=== PATIENT | female | born 1955 | race Caucasian/White ===

== ENCOUNTER → 2017-09-05 09:39 | Outpatient (CLI) | payer OTHER, SELFPAY ==
[2017-09-05 10:29] LABS: Absolute Lymphocyte Count 1.34 X10^3/ul (0.83-4.51); Absolute Neutrophil Count 4.7 X10^3/uL (2.0-7.7); Basophil# 0.05 X10^3/uL; Basophil% 0.7 % (0-1); Eosinophil# 0.34 X10^3/uL; Eosinophils% 4.9 % (0-5); Hematocrit 38.4 % (37-47); Hemoglobin 12.7 g/dl (12.0-15.0); Lymphocyte # 1.34 X10^3/ul (4.0); Lymphocyte % 19.4 % (19-41); Mean Corp Hgb Conc 33.1 g/gl (32-36); Mean Corpuscular Hgb 29.9 pg (27.0-32.0); Mean Corpuscular Volume 90.4 fL (81-99); Monocyte# 0.48 X10^3/uL; Neutrophil # 4.67 X10^3/uL (2.7-7.7); Neutrophil % 67.7 % (47-70); Platelet Count 247 K/mm3 (150-450); RBC Distribution Width CV 13.3 % (11.6-14.6); RBC Distribution Width SD 43.2 fl (35.1-43.9); Red Blood Count 4.25 M/mm3 (4.2-5.4); White Blood Count 6.9 K/mm3 (4.4-11.0)
[2017-09-05 10:43] LABS: Hemoglobin A1c 6.1 % (4.2-6.3)
[2017-09-05 10:49] LABS: POSITIVE COUNT NO; POSITIVE DIFFERENTIAL NO; POSITIVE MORPHOLOGY NO
[2017-09-05 10:58] LABS: ALB/GLOB Ratio 1.1 RATIO (0.9-2.4); AST(SGOT) 16 U/L (15-37); Alanine Aminotransfer ALT/SGPT 20 U/L (13-56); Albumin, Serum 3.6 g/dL (3.2-5.0); Alkaline Phosphatase 85 U/L (45-117); Anion Gap 6 (5-15); BUN 22 mg/dL (7-18); BUN/Creat Ratio 26.7 RATIO (10-20); Calcium,Total 8.8 mg/dL (8.5-10.1); Chloride 107 mmol/L (98-107); Cholesterol 185 mg/dL (200); Creatinine, Serum 0.82 mg/dL (0.55-1.02); EST Glomerular Filtration Rate 74 mL/min (>60); Est Glom Filt Rate - Afr Amer 90 mL/min (>60); Globulin 3.3 g/dL (2.2-4.2); Glucose 110 mg/dL (74-106); High Density Lipoprotein 53 mg/dL; Protein, Total 6.9 g/dL (6.4-8.2); Sodium Level 141 mmol/L (136-145); T4 Free Direct 1.13 ng/dL (0.76-1.46); Thyroid Stim Hormone (TSH) 2.95 uIU/mL (0.358-3.74); Triglycerides 118 mg/dL; Very Low Density Lipoprotein 24 mg/dL (5-40)
== END ==
LOC: LAB 09:44
PROVIDERS: Family Provider Family Medicine; PCP Family Medicine; Visit Provider Family Medicine
DX: E03.9 Hypothyroidism, unspecified (principal); I10 Essential (primary) hypertension; R73.01 Impaired fasting glucose
CPT/HCPCS: 80053; 80061; 83036; 84439; 84443; 85025

== ENCOUNTER 2017-11-12 08:58 | Emergency (ER) | payer OTHER, SELFPAY ==
[2017-11-12 08:59] VITALS: BP 177/100; PULSE 74; RESP 20; TEMP 36.1; O2SAT 98; BMI 48.0
--- NOTE | 2017-11-12 09:12 | EKG12_ITS ---
Test Reason : COUGH Blood Pressure : / mmHG Vent. Rate : 066 BPM Atrial Rate : 066 BPM P-R Int : 144 ms QRS Dur : 084 ms QT Int : 414 ms P-R-T Axes : 052 020 -10 degrees QTc Int : 434 ms Normal sinus rhythm Normal ECG Confirmed by MIC SHIELDS MD ([id number]), editor newspaper NICHOLAS BYERS ([id number]) on 11/13/2017 11:53:02 AM Referred By: BETZAIDA Confirmed By:MIC SHIELDS MD
--- NOTE | 2017-11-12 09:14 | ED.DCSUM_ITS ---
- ER Visit Summary Date of Service: 11/12/17 Chief Complaint: Cough History of Present Illness: The patient is a 61 F who presents with a cough and fatigue over the past week. Her cough is been nonproductive. Over the past couple of days she has felt more fatigued and has been laying on the couch. She does have a history of chronic bronchitis and has been using Mucinex at home without any relief. She has not had a fever. Today she came in because her face felt numb and it traveled to her arms. She had no chest pain. Physical Examination: Vital signs reviewed. HEENT exam unremarkable. Heart is regular rate and rhythm without murmurs. Lungs are clear to auscultation. Abdomen is soft and nontender. Extremities reveal no edema. Skin exam normal. Neurologic exam normal except for some paresthesias of the face when you palpate it with light touch. Test Results: EKG is normal sinus rhythm with a rate of 66. No ST changes. Chest x-ray unremarkable. Hemoglobin 11.8, BUN 22, troponin normal Emergency Department Course and Treatment: Patient was given one aerosol treatment. Upon reevaluation she is unchanged. However, her labs, imaging and EKG are all unremarkable. This is likely acute bronchitis. Patient will be treated with steroids as well as antibiotics. She will follow up with her PCP Treatment Plan: [] Disposition: Discharge Impression: Bronchitis This note was generated with [employer] dictation software. It may contain incorrect words, spelling, and punctuation that were not noted in review of the chart prior to signing ED Disposition - Plan for ED Patient: Chief Complaint: Cough Referrals: Edvin Soto MD [Primary Care Provider] -
--- NOTE | 2017-11-12 09:15 | RAD_ITS ---
STUDY: X-RAY CHEST REASON FOR EXAM: Female, 61 years old. Chest pain. TECHNIQUE: Single AP portable view of the chest. COMPARISON: Comparison is made with prior study dated November 27, 2014. FINDINGS: The lungs are clear and expanded. There is no demonstrated pleural abnormality. Normal size heart. Normal mediastinum and alexandra. Normal visualized pulmonary arteries. There is atherosclerotic tortuosity of the aortic arch and descending thoracic aorta. There are degenerative changes of the visualized thoracic spine. Normal visualized ribs, clavicles, and shoulders. There is no demonstrated abnormality of the visualized soft tissue structures of the upper abdomen. RAD/Chest 1 View (Portable) IMPRESSION: Normal x-ray examination of the chest. Electronically Signed: Lino Reece MD at 10:04 EDT Tel [phone], Service support ,
[2017-11-12] MEDS: Albuterol 2.5 MG/3 ML VIAL.NEB. INHALATION (09:21)
[2017-11-12 09:28] VITALS: PULSE 66; RESP 20
[2017-11-12 09:35] LABS: Absolute Lymphocyte Count 1.51 X10^3/ul (0.83-4.51); Absolute Neutrophil Count 5.4 X10^3/uL (2.0-7.7); Basophil# 0.04 X10^3/uL; Basophil% 0.5 % (0-1); Eosinophil# 0.44 X10^3/uL; Eosinophils% 5.5 % (0-5); Hematocrit 35.2 % (37-47); Hemoglobin 11.8 g/dl (12.0-15.0); Lymphocyte # 1.51 X10^3/ul (4.0); Lymphocyte % 18.7 % (19-41); Mean Corp Hgb Conc 33.5 g/gl (32-36); Mean Corpuscular Hgb 29.9 pg (27.0-32.0); Mean Corpuscular Volume 89.3 fL (81-99); Mean Platelet Vol. 10.1 fl (6.2-12.0); Monocyte# 0.58 X10^3/uL; Monocyte% 7.2 % (0-10); Neutrophil # 5.43 X10^3/uL (2.7-7.7); Neutrophil % 67.4 % (47-70); POSITIVE COUNT NO; POSITIVE DIFFERENTIAL NO; POSITIVE MORPHOLOGY NO; Platelet Count 246 K/mm3 (150-450); RBC Distribution Width CV 13.4 % (11.6-14.6); RBC Distribution Width SD 43.4 fl (35.1-43.9); Red Blood Count 3.94 M/mm3 (4.2-5.4); White Blood Count 8.1 K/mm3 (4.4-11.0)
[2017-11-12] MEDS: Aspirin 81 MG TAB.CHEW 324 MG PO (09:35)
[2017-11-12 09:56] LABS: Anion Gap 7 (5-15); BUN 22 mg/dL (7-18); BUN/Creat Ratio 22.6 RATIO (10-20); Calcium,Total 8.8 mg/dL (8.5-10.1); Chloride 104 mmol/L (98-107); Creatinine, Serum 0.97 mg/dL (0.55-1.02); EST Glomerular Filtration Rate 61 mL/min (>60); Est Glom Filt Rate - Afr Amer 74 mL/min (>60); Estimated Creatinine Clearance 42.64 ml/min; Glucose 102 mg/dL (74-106); Potassium 3.5 mmol/L (3.5-5.1); Sodium Level 139 mmol/L (136-145)
--- NOTE | 2017-11-12 10:13 | ED.DEP ---
ED Disposition - Plan for ED Patient: Disposition: Home or Assisted Living Chief Complaint: Cough Instructions: ED Upper Resp Infec Abx Tx Prescriptions: Azithromycin [Zithromax] 250 mg PO DAILY #6 tab Prednisone [Deltasone] 40 mg PO DAILY #10 tab Referrals: Edvin Soto MD [Primary Care Provider] -
[2017-11-12 10:16] VITALS: BP 145/76; PULSE 69; RESP 13; O2SAT 94
== END 2017-11-12 10:32 | disposition home or self-care (01) ==
PROVIDERS: Emergency Provider Emergency Medicine; Family Provider Family Medicine; PCP Family Medicine
DX: J40 Bronchitis, not specified as acute or chronic (principal); R20.2 Paresthesia of skin; K21.9 Gastro-esophageal reflux disease without esophagitis; I10 Essential (primary) hypertension; E03.9 Hypothyroidism, unspecified; Z79.899 Other long term (current) drug therapy
CPT/HCPCS: 71045; 80048; 84484; 85025; 93005; 94640; 99284

== ENCOUNTER 2018-06-11 11:23 | Emergency (ER) | payer OTHER, SELFPAY ==
[2018-06-11 11:24] VITALS: BP 151/74; PULSE 94; RESP 17; TEMP 36.9; O2SAT 94; BMI 46.8
--- NOTE | 2018-06-11 11:46 | CT_ITS ---
STUDY: CT ABDOMEN AND PELVIS WITH CONTRAST REASON FOR EXAM: Female, 62 years old. Right upper quadrant and right flank pain. Worse with BM. RADIATION DOSAGE (If Supplied By Facility): CTDIvol = ( 16.20 ) mGy, DLP = ( 1011.17 ) mGycm TECHNIQUE: Transaxial images were obtained from the dome of the diaphragm to the symphysis pubis without oral contrast. 100 ml of Isovue 300 contrast was administered. Sagittal and coronal images were reconstructed. Individualized dose optimization techniques were used for this CT. COMPARISON: None. FINDINGS: The visualized lung bases are unremarkable. The visualized portions of the heart are within normal limits. Normal liver. Normal gallbladder and extrahepatic biliary system. Normal spleen. Normal pancreas. Normal bilateral adrenal glands. Normal right kidney. Normal left kidney. Normal visualized stomach. Normal small intestine. Normal colon. The appendix is visualized and appears normal. Normal abdominal aorta. Normal inferior vena cava. Normal retroperitoneum. Normal urinary bladder. Small midline umbilical hernia containing only adipose tissue. Mild degenerative anterolisthesis of L4 on L5. Diffuse disc space height narrowing throughout the lumbar spine with degenerative vacuum phenomenon. No acute osseous abnormality. CT/Abdomen/Pelvis W IV Cont ONLY IMPRESSION: 1. No CT evidence of stones in the kidneys, ureters and bladder. 2. Normal CT of the appendix. 3. Small midline umbilical hernia containing only adipose tissue. 4. No CT evidence of mass or acute abnormality in the abdomen and pelvis. 5. Mild degenerative anterolisthesis of L4 on L5. 6. Diffuse degenerative disc space height narrowing with degenerative vacuum phenomenon throughout the lumbar spine. Electronically Signed: Ralph Allen MD at 15:01 EST , Service support ,
[2018-06-11 12:03] LABS: Mucous, Urine 0 SEEN /hpf (<or=2+); Red Blood Cells-Urine 0 SEEN /hpf (0-5)
[2018-06-11 12:10] LABS: Color, Urine Yellow (Yellow); Glucose, Dipstick Normal (Normal); Ketone-Dipstick Negative (Negative); Leukocyte Esterase-Dipstick 25 /ul (Negative); Nitrite-Dipstick Positive (Negative); Occult Blood-Urine Negative /ul (Negative); Protein-Dipstick Negative (Negative); Urine Bilirubin Dipstick Negative (Negative); Urine Clarity Sl. Cloudy (Clear); Urine Urobilinogen Normal (Normal)
[2018-06-11] MEDS: 0.9% Normal Saline 1,000 ML 1000 ML IV (12:10)
[2018-06-11 12:19] LABS: Absolute Lymphocyte Count 1.74 X10^3/ul (0.83-4.51); Absolute Neutrophil Count 5.5 X10^3/uL (2.0-7.7); Basophil# 0.02 X10^3/uL; Basophil% 0.2 % (0-1); Eosinophils% 3.7 % (0-5); Hematocrit 37.7 % (37-47); Hemoglobin 12.2 g/dl (12.0-15.0); Lymphocyte # 1.74 X10^3/ul (4.0); Lymphocyte % 21.7 % (19-41); Mean Corp Hgb Conc 32.4 g/gl (32-36); Mean Corpuscular Hgb 29.1 pg (27.0-32.0); Mean Platelet Vol. 10.6 fl (6.2-12.0); Monocyte# 0.44 X10^3/uL; Monocyte% 5.5 % (0-10); Neutrophil # 5.52 X10^3/uL (2.7-7.7); Neutrophil % 68.8 % (47-70); Platelet Count 292 K/mm3 (150-450); RBC Distribution Width CV 13.3 % (11.6-14.6); RBC Distribution Width SD 43.4 fl (35.1-43.9); Red Blood Count 4.19 M/mm3 (4.2-5.4)
[2018-06-11 12:20] LABS: POSITIVE COUNT NO; POSITIVE DIFFERENTIAL NO; POSITIVE MORPHOLOGY NO
[2018-06-11 12:24] LABS: Bacteria 2+ /hpf (None Seen); Squamous Epithelial Cells - UA 0-5 SEEN /hpf (5-10); White Blood Cells 0-5 SEEN /hpf (0-5)
[2018-06-11 12:56] LABS: AST(SGOT) 19 U/L (15-37); Alanine Aminotransfer ALT/SGPT 28 U/L (13-56); Albumin, Serum 3.9 g/dL (3.2-5.0); Alkaline Phosphatase 92 U/L (45-117); Anion Gap 8 (5-15); BUN 36 mg/dL (7-18); BUN/Creat Ratio 32.1 RATIO (10-20); Bilirubin, Direct 0.08 mg/dL (0.00-0.30); Chloride 105 mmol/L (98-107); Creatinine, Serum 1.12 mg/dL (0.55-1.02); EST Glomerular Filtration Rate 52 mL/min (>60); Est Glom Filt Rate - Afr Amer 63 mL/min (>60); Estimated Creatinine Clearance 36.45 ml/min; Globulin 3.5 g/dL (2.2-4.2); Glucose 107 mg/dL (74-106); Lipase 172 U/L (73-393); Protein, Total 7.4 g/dL (6.4-8.2); Sodium Level 140 mmol/L (136-145)
[2018-06-11 13:54] VITALS: BP 131/65; PULSE 71; RESP 14; O2SAT 97
--- NOTE | 2018-06-11 15:35 | ED.VISSUMM ---
- ER Visit Summary Date of Service: 06/11/18 Chief Complaint: Right flank pain History of Present Illness: The patient is a [address] Edvin Soto. She reports that she has right flank pain that began 6 days ago. Sick continuous aching, sharp pain. Is 10 out of 10 at worst and 2 out of 10 currently. It is worsened by having a bowel movement. Is relieved by nothing. She denies any nausea, vomiting, or diarrhea. States her last problem was today. Was a loose stool. She denies any blood in her stools or black tarry stools. No dysuria or frequency. Patient reports that she was diagnosed with a urinary tract infection 2 weeks ago and took Macrobid for 1 week. She has never had anything like this before. She denies any fever, chills, chest pain, or shortness of breath. Physical Examination: Vitals: Stable. Afebrile. General: Well-nourished and well-developed. Head: Normocephalic atraumatic. Neck: Supple, no lymphadenopathy. No JVD. Nontender. Cardiovascular: Regular rate and rhythm. No murmurs. Respiratory: No respiratory distress. Clear to auscultation bilaterally. Abdominal: Soft, nontender, nondistended, normal bowel sounds. No guarding, rebound, or peritoneal signs. Back: Mild right CVA tenderness. Extremities: Nontender, no edema. Skin: Normal color, no rash. Neurologic: Alert and oriented ?3. Cranial nerves II through XII are intact. Normal strength and sensation. Psych: Normal affect. Test Results: CBC is normal. Chem-7 is more for glucose 107, BUN 36, creatinine 1.12. LFTs are normal. Lipase is normal. UA is negative. Clinical Impression(s) from Imaging Studies Abdomen/Pelvis CT 06/11/18 11:46 IMPRESSION: 1. No CT evidence of stones in the kidneys, ureters and bladder. 2. Normal CT of the appendix. 3. Small midline umbilical hernia containing only adipose tissue. 4. No CT evidence of mass or acute abnormality in the abdomen and pelvis. 5. Mild degenerative anterolisthesis of L4 on L5. 6. Diffuse degenerative disc space height narrowing with degenerative vacuum phenomenon throughout the lumbar spine. Electronically Signed: Ralph Allen MD at 15:01 EST , Service support , Emergency Department Course and Treatment: Patient refused pain or nausea medications. She is resting comfortably. Treatment Plan: Patient will be discharged symptomatic care. Follow-up her primary care physician 1-2 days if not improving. Return to the emergency department for any worsening symptoms. Disposition: To home in improved and stable condition. Impression: 1. Flank pain, uncertain cause. This note was generated with [employer] dictation software. It may contain incorrect words, spelling, and punctuation that were not noted in review of the chart prior to signing ED Disposition - Plan for ED Patient: Disposition: Home or Assisted Living Chief Complaint: Flank Pain Instructions: ED Flank Pain Uncertain Cause Referrals: Edvin Soto MD [Primary Care Provider] - 1-2 Days if not improving
[2018-06-11 15:43] VITALS: BP 130/85; PULSE 78; RESP 14; O2SAT 98
== END 2018-06-11 15:45 | disposition home or self-care (01) ==
PROVIDERS: Emergency Provider Emergency Medicine; Family Provider Family Medicine; PCP Family Medicine
DX: R10.9 Unspecified abdominal pain (principal); R19.5 Other fecal abnormalities; K42.9 Umbilical hernia without obstruction or gangrene; I10 Essential (primary) hypertension; E03.9 Hypothyroidism, unspecified; Z87.440 Personal history of urinary (tract) infections; Z79.899 Other long term (current) drug therapy
CPT/HCPCS: 74177; 80048; 80076; 81001; 83690; 85025; 96360; 99284; J7030; Q9967; A4216

== ENCOUNTER → 2018-08-04 13:35 | Outpatient (CLI) | payer OTHER, SELFPAY ==
[2018-08-04 15:47] LABS: Absolute Lymphocyte Count 1.92 X10^3/ul (0.83-4.51); Basophil# 0.05 X10^3/uL; Basophil% 0.6 % (0-1); Eosinophil# 0.13 X10^3/uL; Eosinophils% 1.5 % (0-5); Hematocrit 38.7 % (37-47); Hemoglobin 12.8 g/dl (12.0-15.0); Lymphocyte # 1.92 X10^3/ul (4.0); Lymphocyte % 22.4 % (19-41); Mean Corp Hgb Conc 33.1 g/gl (32-36); Mean Corpuscular Hgb 29.6 pg (27.0-32.0); Mean Corpuscular Volume 89.6 fL (81-99); Mean Platelet Vol. 11.1 fl (6.2-12.0); Monocyte% 5.8 % (0-10); Neutrophil # 5.95 X10^3/uL (2.7-7.7); Neutrophil % 69.2 % (47-70); Platelet Count 316 K/mm3 (150-450); RBC Distribution Width CV 13.6 % (11.6-14.6); RBC Distribution Width SD 44.3 fl (35.1-43.9); Red Blood Count 4.32 M/mm3 (4.2-5.4); White Blood Count 8.6 K/mm3 (4.4-11.0)
[2018-08-04 15:56] LABS: POSITIVE COUNT NO; POSITIVE DIFFERENTIAL NO; POSITIVE MORPHOLOGY NO
[2018-08-04 16:00] LABS: ALB/GLOB Ratio 1.3 RATIO (0.9-2.4); AST(SGOT) 21 U/L (15-37); Alanine Aminotransfer ALT/SGPT 29 U/L (13-56); Albumin, Serum 4.3 g/dL (3.2-5.0); Alkaline Phosphatase 93 U/L (45-117); Anion Gap 10 (5-15); BUN 31 mg/dL (7-18); BUN/Creat Ratio 26.7 RATIO (10-20); Calcium,Total 9.3 mg/dL (8.5-10.1); Chloride 101 mmol/L (98-107); Creatinine, Serum 1.16 mg/dL (0.55-1.02); EST Glomerular Filtration Rate 50 mL/min (>60); Est Glom Filt Rate - Afr Amer 60 mL/min (>60); Globulin 3.3 g/dL (2.2-4.2); Glucose 90 mg/dL (74-106); Potassium 4.1 mmol/L (3.5-5.1); Protein, Total 7.6 g/dL (6.4-8.2); Sodium Level 137 mmol/L (136-145)
== END ==
PROVIDERS: Family Provider Family Medicine; PCP Family Medicine; Visit Provider Family Medicine
DX: Z01.818 Encounter for other preprocedural examination (principal); M21.612 Bunion of left foot; I10 Essential (primary) hypertension; E03.9 Hypothyroidism, unspecified
CPT/HCPCS: 36415; 80053; 85025

== ENCOUNTER 2018-08-13 05:49 | Day surgery (SDC) | payer OTHER, SELFPAY ==
[2018-08-13] VITALS (7 sets, daily range): BP systolic 128–147; BP diastolic 72–81; PULSE 68–103; RESP 16; TEMP 36.3–37; O2SAT 92–99; BMI 48.7
[2018-08-13] MEDS: Cefazolin 2 GM in 0.9% Normal Saline 100 ML IV (07:28)
--- NOTE | 2018-08-13 07:30 | RAD_ITS ---
STUDY: X-RAY - LEFT FOOT CLINICAL: Female, 62 years old. Bunion surgery and arthrodesis TECHNIQUE: 7 intraoperative view(s) of the foot. COMPARISON: None. FINDINGS: 7 limited intraoperative views of the left foot were performed as the patient has undergone hallux valgus reduction surgery with fusion of the first tarsal metatarsal joint and stapling fusion of the second and third tarsometatarsal joints per RAD/Foot min 3 Views IMPRESSION: 7 Limited intraoperative views as the patient has undergone foot surgery. Follow-up recommended to assure healing Electronically Signed: Armand Newton MD at 12:14 EST , Service support ,
[2018-08-13] MEDS: Bupivacaine Mpf 0.5% 30 ML VIAL (11:15)
--- NOTE | 2018-08-13 11:36 | RAD_ITS ---
STUDY: X-RAY - LEFT FOOT CLINICAL: Female, 62 years old. Postop from bunionectomy and correction surgery TECHNIQUE: 3 view(s) of the foot. COMPARISON: None. FINDINGS: 3 views were performed of the patient is undergone bunion reduction surgery and arthrodesis. Surgical hardware traversing the first tarsometatarsal junction and surgical michi traversing the second and third tarsometatarsal junctions free of complication. Alignment at the joint spaces is anatomic there is no plain film evidence of postoperative complication. Normal postoperative soft tissue swelling and subcutaneous emphysema noted Calcaneal spurs. RAD/Foot min 3 Views IMPRESSION: Postoperative changes in the left foot. Alignment is anatomic, no plain film evidence of postoperative complication Calcaneal spurs Electronically Signed: Armand Newton MD at 12:16 EST , Service support ,
--- NOTE | 2018-08-13 11:40 | DCINST_ITS ---
Discharge Diet: No Restrictions Discharge Activity: May not drive while taking narcotic pain medications., Use Walker, Use Crutches Ice area for (Minutes): 15 - place behind knee Weight Bearing Status: No weight bearing Keep extremity elevated above heart level: Left Leg Call your doctor if your incision/area has: Continuous Slow Oozing, Sudden Increased Bleeding, Increased Pain/ Swelling, Increased Redness, Foul Smelling Discharge, Swelling at the incision site Call your doctor if you observe: Fever of 101 or Higher, Coldness, Increased Pain, Numbness or Tingling, Calf discomfort, Uncontrolled pain Cleanse incision/area with: Keep Dressing Clean & Dry Allergies/Adverse Reactions: Allergies codeine Allergy (Verified 08/06/18 15:33) Hives Medications to take at Discharge Levothyroxine [Synthroid] 100 mcg PO DAILY 11/27/14 Lisinopril [Zestril] 10 mg PO DAILY 11/27/14 Paroxetine HCl [Paxil] 30 mg PO DAILY 11/27/14 Pregabalin [Lyrica] 75 mg PO BID PRN 11/12/17 Omeprazole [Prilosec] 20 mg PO DAILY 06/11/18 Primary Care Physician: Edvin Soto MD [Primary Care Provider] - Test Results: Test results from this visit will be discussed in further detail at your follow- up appointment, if applicable. Please Follow Up With: Colleen Pelayo DPM When: 1 week [facility]; call [phone] if questions Proposed Discharge Date: 08/13/18
--- NOTE | 2018-08-13 11:41 | OP.PN_ITS ---
Problem List (1) Hallux valgus (acquired), left foot Status: Chronic (2) Left foot pain Status: Chronic (3) Arthritis of left foot Status: Chronic Immediate Post-Op Note Date of Procedure: 08/13/18 - Mobile Battery Technician: David Peters PGY1, Alvin Radford PGY2. Surgeon: Colleen Pelayo DPM Primary Surgeon/Physician: Colleen Pelayo DPM waiter/waitress second class: none Pre-Operative Diagnosis: left hallux valgus. left arthritis of second and third metatarsal cuneiform Post-Operative Diagnosis: left hallux valgus. left arthritis of second and third metatarsal cuneiform Surgery/Procedure Performed:: left bunionectomy including arthrodesis of first metatarsal cuneiform with bone graft and internal fixation. left arthrodesis of second and third metatarsal cuneiform with internal fixation and bone graft Description of Surgical Findings:: Hemostasis controlled Materials: 2-0 and 3-0 Vicryl, 4-0 nylon, one plantar Arthrex Lapidus plate (standard), three nitinol Arthrex michi, one 3.5 mm low profile cortical titanium screw, three 3.5 mm low profile locking titanium screws, one 4 mm low profile titanium cancellus screw No specimen sent Complications none See detailed operation report for findings The patient tolerated the procedure and anesthesia well. She was transported to the PACU vital signs stable vascular status intact to left lower extremity. She will be discharged home upon continued stability. All of her postoperative orders were entered electronically. Estimated Blood Loss: <200 mL Specimen's removed: none Type of Anesthesia:: General, Local - Preoperative: 20 cc of one-to-one mixture of 1% lidocaine plain and 0.5% Marcaine plain administered in left ankle block fashion Postoperative: 20 cc of one-to-one mixture of 1% lidocaine plain and 0.5% Marcaine plain administered in left ankle block fashion and surgical site infiltration - Admit VTE Documentation VTE Present on Admission: No VTE Mechan Device Prophylaxis: SCD's VTE Pharm Prophylaxis ordered?: No Reason prophylaxis not ordered:: Treatment Not Indicated
--- NOTE | 2018-08-13 12:40 | PCM.OPRPT ---
Problem List (1) Hallux valgus (acquired), left foot Status: Chronic (2) Left foot pain Status: Chronic (3) Arthritis of left foot Status: Chronic Report of Operation Date of Procedure: 08/13/18 - [employer] Installer: David Peters PGY1, Alvin Radford PGY2. Surgeon: Colleen Pelayo DPM Pre-Operative Diagnosis: left hallux valgus. left arthritis of second and third metatarsal cuneiform Post-Operative Diagnosis: left hallux valgus. left arthritis of second and third metatarsal cuneiform Surgery/Procedure Performed:: left bunionectomy including arthrodesis of first metatarsal cuneiform with bone graft and internal fixation. left arthrodesis of second and third metatarsal cuneiform with internal fixation and bone graft Description of Surgical Findings:: Hemostasis: Well-padded pneumatic left thigh tourniquet, 350 mmHg, 120 minutes with break and then an additional 10 minutes Materials: 2-0 and 3-0 Vicryl, 4-0 nylon, one plantar Arthrex Lapidus plate (standard), three nitinol Arthrex michi, one 3.5 mm low profile cortical titanium screw, three 3.5 mm low profile locking titanium screws, one 4 mm low profile titanium cancellus screw Complications none clinical project manager: none Type of Anesthesia:: General, Local - Preoperative: 20 cc of one-to-one mixture of 1% lidocaine plain and 0.5% Marcaine plain administered in left ankle block fashion Postoperative: 20 cc of one-to-one mixture of 1% lidocaine plain and 0.5% Marcaine plain administered in left ankle block fashion and surgical site infiltration Specimen's removed: none Estimated Blood Loss (mL): <200 mL Description of Procedure: Indications: This 62-year-old pleasant female with significant past medical history of hypertension continues to have ongoing left foot pain at her bunion site and arthritic midfoot. She is failed conservative care including offloading, improve shoe gear, orthotics, rest, anti-inflammatory medication, and pain medicine. Her pain is affecting her ability to walk and perform daily activities. Radiographically she does demonstrate a severe increased intermetatarsal angle, appearance of a laterally deviated sesamoid apparatus, and diastases of the proximal first and second metatarsals. She does have lateral hallux deviation and a prominent hypertrophic first metatarsal medial eminence. There is also dorsal spurring and narrowing of the second and third metatarsal cuneiform articulations consistent with degenerative joint disease that correlates with her clinical pain. Clinically she has pain on palpation to the bunion site as well as the dorsal medial midfoot foot. Her foot is very flexible and she has hypermobility of the first ray as well. Her preoperative clearance, history and physical, and diagnostic data (labs and EKG) were reviewed in detail without gross abnormalities. She was cleared for surgery. The preoperative indications, planned procedure, possible benefits, risks, complications, and anticipated healing time and management were discussed in detail with the patient. No guarantees were made. She understands risks and complications may include but are not limited to the following: pain, swelling, scarring, hardware failure, delayed or nonhealing, infection, over under correction, recurrence, need for further surgery, numbness, loss of function, limb, life, allergic reaction, or blood clot. She understands and elects to proceed at this time. Informed surgical consent and the surgical limb were signed. I answered all her questions. Procedure in detail: The patient was transported to the operating room via cart and placed on the operating table in the supine position. Final verification of the patient, surgery, limb designation was performed via the timeout procedure. Local anesthetic was administered by the podiatry team. Preoperative antibiotics were administered by the anesthesia team. General anesthesia was initiated by the anesthesia team. A well-padded pneumatic left thigh tourniquet was applied. The left lower extremity was prepped and draped in the usual aseptic manner. Surgery began in the following manner: Attention was directed to the left lower extremity in which an Esmarch bandage was used for exsanguination and the tourniquet was inflated at this time. An 8 cm linear incision was made carefully through the skin to the medial aspect of the left foot spanning from the region of the medial cuneiform to the prominent first metatarsal head at the junction where the dorsal and plantar skin meet. Care was taken to identify, protect, and retract all neurovascular structures at this point and throughout the remainder of surgery. Blunt dissection was performed through the subcutaneous tissue and minimal electrocauterization was needed due to the varicosities. The tibialis anterior tendon was identified and the boundaries were marked. Care was taken to identify, protect, and retract neurovascular structures throughout the entire procedure. Next the first metatarsal cuneiform joint was identified and was incised with a 15 blade. A small joint retractor was applied and osteotomes, sagittal saw, and curette was used to resect the joint surfaces to healthy subchondral bone. Additional subchondral drilling and fish scaling was also performed to encouraged osseous union. Allosync demineralized bone matrix was applied to this site and the first ray was reduced manually and temporary fixation with k wires were applied. This was held in a reduced triplanar position to decrease the intermetatarsal angle and remove the valgus deformity. A distally applied tenaculum was also placed. The desired position was confirmed with intraoperative fluoroscopy with multiple imaging studies. Next, the plantar plate was temporarily fashioned to the plantar aspect of the first metatarsal cuneiform joint and held intact with BB tacks. Two distal screws were applied through the plate. Next the compression screw was applied utilizing proper AO fixation technique. Prior to final tightening, all temporary fixation was removed to allow adequate compression across the arthrodesis site. Lastly, two proximal screws were applied that were locking and according to proper AO fixation technique. Intraoperative fluoroscopy confirmed compression at the arthrodesis site, proper placement of screws and plate, and desired trajectory of all the screws. Solid fixation was achieved and the bunion correction site maintained a rectus position. Next, attention was directed to the dorsal foot in which a curvilinear incision was made to allow good exposure to the second and third metatarsal cuneiform articulation site where a prominent spur was noted. Prior to surgery her dorsalis pedis artery was palpated and marked and care was taken to perform a surgical dissection lateral to this area. The extensor tendons and extensor digitorum brevis muscle belly were reflected in which the joints were immediately identified and confirmed with intraoperative fluoroscopy. Careful dissection was performed to incise into the joints of interest and these were mobilized and distracted with a small joint distractor. The tourniquet was deflated at this time and pressure was applied to maintain hemostasis. Next, the second and third metatarsal cuneiform joint surfaces were prepared with sagittal saw, curette, and osteotome. These aformentioned joint surfaces were further prepared with subchondral K wire drilling and fish scaling technique. Allosync bone graft was applied to the site and these were temporary reduced and held in place with K wire fixation. Next, two Arthrex michi were applied to the second metatarsal cuneiform arthrodesis site, and one Arthrex staple was applied to the third metatarsal cuneiform arthrodesis site utilizing proper fixation technique to allow good apposition and compression. Proper placement was confirmed with intraoperative fluoroscopy and direct visualization. Saline irrigation was performed. No pulsatile bleeding was noted. Brisk capillary refill time was brisk to all digits of the left foot. Next, attention was directed to the first metatarsal phalangeal joint in which the first metatarsophalangeal joint capsular dissection was completed through the medial incision and the first metatarsal head was exposed to allow good visualization of the dorsal medial aspect. An Esmarch bandage was utilized to exsanguinate the limb and the tourniquet was reinflated at this time. It is noted over 25 minutes break was permitted prior to tourniquet reinflation. A sagittal saw was used to resect the hypertrophic dorsal and medial eminence taking care to preserve the sagittal sulcus. A small cheilectomy was also performed to allow improved motion. No osteochondral lesions were noted to the first metatarsal head. A capsulorrhaphy was performed to remove redundant medial capsule. Capsular deep tissue closure was achieved to all incisional sites with 2-0 Vicryl. The first metatarsophalangeal joint passive range of motion was smooth and gliding. The tourniquet was deflated at this time and brisk capillary refill time was noted to all digits of the left foot. No pulsatile bleeding was noted. Additional deep closure was performed at this time with 3-0 Vicryl to both incision sites. The skin was reapproximated with 4-0 nylon utilizing simple and horizontal mattress technique. Proper final hardware placement and trajectory, deformity correction, and eminence resection was confirmed with intraoperative fluoroscopy. A postoperative injection was administered at this time as noted. A postoperative dressing consisting of Adaptic, gauze, and webril was applied. A well-padded posterior mold splint was applied with the foot and ankle in a rectus position and this was further secured with MORIAH wraps. After procedure: The patient tolerated the procedure and anesthesia well. She was transported to the PACU with vital signs stable and vascular status intact to left lower extremity. She was advised to ice and elevate for pain and inflammation management. She was given a prescription for [place] for pain control in the home setting, and she was advised on safe and proper use. She was advised to maintain a strict nonweightbearing status to left lower extremity. She has an assistive device at home to help with this including a walker and knee roller. Crutches were also be provided today per her request to help her transport home. She was advised to keep her dressing and splint clean, dry, and intact until [facility] next week with Dr. Pelayo. Postoperative x-rays were again reviewed as noted above. She will be discharged home upon continued stability. All postoperative orders were entered electronically. Colleen Pelayo DPM, [facility]
[2018-08-13] MEDS: Ketorolac 30 MG/ML Syringe IV (13:19)
[2018-08-13] MEDS: HYDROcodone Bitartrate/Apap 5/325 Tablet PO (13:20)
== END 2018-08-13 13:55 | disposition home or self-care (01) ==
LOC: SDC 05:49 → AC 05:50
PROVIDERS: Family Provider Family Medicine; PCP Family Medicine; Referring Provider Podiatrist; Visit Provider Podiatrist
PROC: (CPT 28292; principal; 2018-08-13 07:15)
DX: M20.12 Hallux valgus (acquired), left foot (principal); M21.612 Bunion of left foot; M13.872 Other specified arthritis, left ankle and foot; J45.909 Unspecified asthma, uncomplicated; E03.9 Hypothyroidism, unspecified; F41.9 Anxiety disorder, unspecified; F32.9 Major depressive disorder, single episode, unspecified; I10 Essential (primary) hypertension; K21.9 Gastro-esophageal reflux disease without esophagitis; G62.9 Polyneuropathy, unspecified; E66.01 Morbid (severe) obesity due to excess calories; Z71.3 Dietary counseling and surveillance; Z68.42 Body mass index [BMI] 45.0-49.9, adult; Z79.899 Other long term (current) drug therapy
CPT/HCPCS: 28297; 28730; 64445; 73630; 76000; C1713; J7120; J2405

== ENCOUNTER → 2018-09-08 14:24 | Outpatient (CLI) | payer OTHER, SELFPAY ==
[2018-08-13 06:36] VITALS: BMI 48.7
[2018-09-08 16:23] LABS: T4 Free Direct 1.44 ng/dL (0.76-1.46)
== END ==
PROVIDERS: Family Provider Family Medicine; PCP Family Medicine; Visit Provider Family Medicine
DX: R73.01 Impaired fasting glucose (principal)
CPT/HCPCS: 36415; 84439; 84443

== ENCOUNTER 2018-10-11 12:30 | Outpatient (RCR) | payer OTHER, SELFPAY ==
[2018-08-13 06:36] VITALS: BMI 48.7
--- NOTE | 2018-10-04 19:38 | HP.PTEVAL ---
Patient's Visit Information SHANNAN HORTON is a 62 year old F referred to Physical Therapy by Colleen Pelayo DPM with a diagnosis of LEFT LAPIDIDUS BUNIONECTOMY,ARTHRODESIS OF 2ND AND 3RD METATRSELS/CUNEIFORM. Date of Evaluation: 10/04/18 Physical Therapist: Raman Diaz, PT, Cert MDT, OCS - Visit Plan Frequency: 2-3x /Week Duration: 8WEEKS Plan: S/P FOOT SURGEY 08/13/18. USES KNEELING WALKER INTIALLY. WHEN START PT PWB WITH CAM BOOT AND WALKER ,WILL PROGREES TO WBAT AND TRANSITION TO SHOE. INTERVENTION WITH ROM ANKLE FIRST MCP JOINT , GRADED STRENGTHENING ANKLE ,GAIT /BALANCE TRAINING - Subjective Findings: This 62 y/o female presenst to physical therapy with left lapidus buiionectomy,arthrodesis of 2nd and 3rd metatarsels cuneiform joints 08/13/18 at [facility] done by DR Fairchild.Patient had plates and srews/michi. Patient intiatlly was d/c with NWB using scooter and soft cast for 1 week ,then hard cast 2weeks . Patient place in in CAM boot and NWB 8weeks. Patient is able progress PWB with CAM boot and walker.Patient had x-rays last visits showed foot healing. Patient plans to see DR roldan . Patient denies parathesia/tingling.Patient conts to have some swelling during day. Patient surgery has affected ADL'S ,housework ,unable to walk. HOME SITUTATION: raunch no steps. Patient surgery left foot affects QOL and function. SOCIAL: . VOCATION: retired - Pain Left Foot Pain Intensity (Out of 10): 2 Pain Intensity Range: 10 - Objective POSTURE: pes planus ,knee valgus. EDEMA: metatrsel heads 27 cm,trimallelor 30.2 cmc. INSCION: well approximate scaby. GAIT: useed kneeling walker ,instructed in FWW with CAM boot with PWB LLE. AROM: dorsiflexion 7 degrees from 0 ,plantarflexion 65 degrees ,eversion 40 degrees,inversion 2 degrees. PROPRIOCEPTION: NT. MMT: ankle dorsiflexion/eversion/inversion 4-/5,plantarflexion 2+/5 - Goals Goal 1:: Independant with HEP Goal Time Frame: 8-12 Weeks Goal 2:: Patient to ambulate with improve gait pattern heel strike to toe off community distances Goal Time Frame: 8-12 Weeks Goal 3:: Patient to improve dorsiflexion by 5 degrees to improve gait Goal Time Frame: 8-12 Weeks Goal 4:: Patient to improve strength of ankle stabilizers by 4/5 ,except ankle 4-/5 G-S TO IMPROVE FUNCTION. Goal Time Frame: 8-12 Weeks Goal 5:: Patient to return to prior level of function and ADL'S and stairs with no limiations Goal Time Frame: 8-12 Weeks Goal 6:: Patient to improve LFES score by 10 points > to improve QOL. Goal Time Frame: 8-12 Weeks - Rehabilitation Potential Physical Therapy Diagnosis: This patient underwent s/p surgey on foot with decrease ROM ,strength,gait,balance thus causes deficits with ADL'S and function thus benifit from skilled PT Rehabilitation Potential: Good - Anticipated Interventions Patient/Client Instruction: Educate patient on: Condition, Plan of Care For the Purpose of:: To decrease pain, To increase ROM, To improve muscle performance and motor function, To improve ability to perform ADL's, To increase tolerance to activity/condition/position, To improve performance and independence with ADL's, To improve ability of physical actions for home/community/work/leisure, To improve gait and locomotor functions, To improve health of tissue, To decrease soft tissue restriction, To increase flexibility/ROM, To improve balance, To reduce risk of recurrence, To improve tolerance to ADL's Therapeutic Exercise to Include: Strength training, Flexibilty training, Gait and locomotor training, Active ROM Comment: ANKLE ,IST MCP , For the Purpose of:: To decrease pain, To increase ROM, To improve muscle performance and motor function, To improve ability to perform ADL's, To increase tolerance to activity/condition/position, To improve performance and independence with ADL's, To improve ability of physical actions for home/community/work/leisure, To improve gait and locomotor functions, To improve health of tissue, To decrease soft tissue restriction, To increase flexibility/ROM TENS: Yes IF ES: Yes Cryotherapy (ice pack, ice massage): Yes Thermo therapy (hot pack): Yes For the Purpose of:: To decrease swelling/inflammation, To increase ROM, To improve nutrient delivery to tissue, To increase oxygenation perfusion, To improve health of tissue, To decrease soft tissue restriction Thank you for the opportunity to evaluate your patient. For Medicare and Medicare HMO plans, please review the plan of care and approve it. It will need to be FAXED BACK to us at [phone] for Medicare purposes. For Medicare only, by signing this I certify the plan of care. Please let me know if there are questions or concerns regarding this plan of care. Physician Signature: Date:
--- NOTE | 2019-03-30 15:18 | HP.PTDCNRP_ITS ---
HP - Discharge Summary (1) - Patient Information SHANNAN HORTON was seen in my office for initial evaluation on 10/04/18. The following Plan of Care was established for this patient: Initial Frequency: 2-3x /Week Initial Duration: 8WEEKS - Anticipated Interventions Patient/Client Instruction: Educate patient on: Condition, Plan of Care For the Purpose of:: To decrease pain, To increase ROM, To improve muscle perfor patito and motor function, To improve ability to perform ADL's, To increase tolerance to activity/condition/position, To improve performance and independence with ADL's, To improve ability of physical actions for home/community/work/leisure, To improve gait and locomotor functions, To improve health of tissue, To decrease soft tissue restriction, To increase flexibility/ROM, To improve balance, To reduce risk of recurrence, To improve tolerance to ADL's Therapeutic Exercise to Include: Strength training, Flexibilty training, Gait and locomotor training, Active ROM For the Purpose of:: To decrease pain, To increase ROM, To improve muscle performance and motor function, To improve ability to perform ADL's, To increase tolerance to activity/condition/position, To improve performance and independence with ADL's, To improve ability of physical actions for home/community/work/leisure, To improve gait and locomotor functions, To improve health of tissue, To decrease soft tissue restriction, To increase flexibility/ROM TENS: Yes IF ES: Yes Cryotherapy (ice pack, ice massage): Yes Thermo therapy (hot pack): Yes For the Purpose of:: To decrease swelling/inflammation, To increase ROM, To improve nutrient delivery to tissue, To increase oxygenation perfusion, To improve health of tissue, To decrease soft tissue restriction This patient was last seen in our office . Pertinent comments regarding their Physical therapy will appear below: PATIENT SEEN FOR PT FOLLOWING FOOT SURGERY FOR HEP AND TRANSITION TO SHOE. THUS IS D/C . At this point I will be discontinuing this patient from physical therapy. I would be happy to see this patient again in the future if found appropriate by the physician. Thank you! Raman Diaz, PT, Cert MDT, OCS
== END 2018-10-11 19:00 | disposition home or self-care (01) ==
LOC: PT 12:30
PROVIDERS: Family Provider Family Medicine; PCP Family Medicine; Referring Provider Podiatrist; Visit Provider Podiatrist
DX: Z98.890 Other specified postprocedural states (principal)
CPT/HCPCS: 97110; 97162

== ENCOUNTER → 2018-10-19 13:47 | Outpatient (CLI) | payer OTHER, SELFPAY ==
[2018-08-13 06:36] VITALS: BMI 48.7
[2018-10-19 15:39] LABS: T4 Free Direct 1.44 ng/dL (0.76-1.46); Thyroid Stim Hormone (TSH) 2.32 uIU/mL (0.358-3.74)
== END ==
PROVIDERS: Family Provider Family Medicine; PCP Family Medicine; Visit Provider Family Medicine
DX: E03.9 Hypothyroidism, unspecified (principal)
CPT/HCPCS: 36415; 84439; 84443